=== PATIENT | female | born 1980 | race Caucasian/White ===

== ENCOUNTER 2024-10-06 18:18 | Emergency (ER) | payer OTHER | END 2024-10-06 19:28 | disposition home or self-care (01) | LOC: JP.ED 18:18 | DX: S16.1XXA Strain of muscle, fascia and tendon at neck level, initial encounter (principal); S50.811A Abrasion of right forearm, initial encounter; S50.812A Abrasion of left forearm, initial encounter; V49.49XA Driver injured in collision with other motor vehicles in traffic accident, initial encounter | CPT/HCPCS: 99283 ==